=== PATIENT | female | born 2000 | race Caucasian/White ===

== ENCOUNTER 2021-04-13 18:38 | Emergency (ER) | payer OTHER, SELFPAY ==
--- NOTE | ~2021-04-13 | XR_ITS ---
EXAMINATION: XR ABDOMEN KUB CLINICAL INDICATION: Crampy abdominal pain. COMPARISON: None TECHNIQUE: AP views of the abdomen. FINDINGS: Nonobstructive bowel gas pattern. Mild air and stool throughout the bowel. No abnormal soft tissue calcification. No acute osseous abnormality. XR/XR KUB IMPRESSION: Unremarkable examination.
[2021-04-13 19:09] VITALS: BP 116/82; PULSE 80; O2SAT 98
[2021-04-13 19:20] VITALS: BP 113/56; PULSE 96; RESP 20; TEMP 37.1; O2SAT 100; BMI 21.2
[2021-04-13 19:36] LABS: MANUAL DIFF FLAG NO
[2021-04-13 19:38] LABS: Basophils Percent Auto 0.4 % (0-2); Eosinophils Absolute Auto 0.1 X10*3/uL (0.0-0.4); Eosinophils Percent Auto 0.6 % (0-4); Hematocrit 40.7 % (37.0-47.0); Hemoglobin 14.3 g/dl (12.0-16.0); Imm Gran Abs Auto 0.04 X10*3/uL (0.00-0.03); Imm Gran Pct Auto 0.5 % (0.0-0.4); Lymphocytes Absolute Auto 1.8 X10*3/uL (1.2-4.9); Lymphocytes Percent Auto 21.6 % (20-40); Mean Corpuscular HGB Conc 35.1 g/dl (31.0-35.0); Mean Corpuscular Hemoglobin 29.9 pg (27.0-33.0); Mean Corpuscular Volume 85.1 fL (80.0-98.0); Mean Platelet Volume 8.4 fL (9.4-12.3); Monocytes Absolute Auto 0.7 X10*3/uL (0.1-1.2); Neutrophils Absolute Auto 5.5 x10*3/uL (2.0-8.3); Neutrophils Percent Auto 67.9 % (45-73); Platelet Count 345 X10*3/uL (160-400); Red Blood Count 4.78 X10*6/uL (4.20-5.50); Red Cell Distribution Width 11.9 % (11.0-16.0); White Blood Count 8.1 X10*3/uL (4.8-10.8)
[2021-04-13 19:50] LABS: Alanine Aminotransferase 15 U/L (0-31); Albumin Level 4.7 g/dL (3.5-5.0); Alkaline Phosphatase 98 U/L (39-117); Anion Gap 16 (12-20); Aspartate Amino Transferase 19 U/L (5-31); Bilirubin Total 0.6 mg/dL (0.0-1.0); Blood Urea Nitrogen 13 mg/dL (9-16); Calcium 10.1 mg/dL (8.4-10.2); Carbon Dioxide 20 mmol/L (22-29); Chloride 107 mmol/L (96-108); Creatinine Clr Calc Pharmacy 101.2; Estimated Glomerular Filt Rate > 60; Glucose Random 105 mg/dL (60-115); Sodium 139 mmol/L (135-145); Total Protein 7.9 g/dL (6.5-8.0)
[2021-04-13 21:27] LABS: Appearance Urine HAZY; Color Urine YELLOW; Glucose Urine UA NEG (NEG); Leukocyte Esterase Urine NEG (NEG); Nitrite Urine NEG (NEG); Specific Gravity - Urine 1.025 (1.005-1.025); UACC Culture Trigger NO; Urine Blood TRACE (NEG); Urine Ketones 40 MG/DL (NEG); Urine Protein NEG (NEG-TRACE)
[2021-04-13 21:41] LABS: WBC Urine 0-2 /HPF (0-4)
[2021-04-13 21:42] LABS: Amorphous Sediment Urine 1+ /LPF; Bacteria Urine TRACE /LPF; RBC Urine 0-2 /HPF (0); Squamous Epithelial Cell Urine TRACE /LPF
[2021-04-13 22:24] LABS: COVID-19 Test Negative (Negative); IDNOW Serial# 08D9AD1C
[2021-04-13 22:38] LABS: HCG Quantitative < 2 mIU/mL
--- NOTE | 2021-04-13 22:41 | ED_ITS ---
HPI - Abdominal Pain General Chief Complaint: Abdominal Pain Stated Complaint: ABD PAIN,DIARRHEA X'S 2 DAYS,RECENT NEG COVID,+VAC Time Seen by Provider: 04/13/21 21:38 Source: patient Mode of arrival: ambulatory History of Present Illness HPI narrative: 20-year-old female without significant past medical history presents with acute on chronic diarrhea/ constipation syndrome with mild nausea and vomiting but denies urinary pain/ burning / frequency, cough, sore throat and has had her COVID-9 vaccine to include the booster. Patient reports that the past 2 days she has been nauseous, vomiting with up to 8 episodes of diarrhea a day and then today decided to take a laxative as well as additional stool softeners because she still felt like there was something inside . She is now experiencing crampy abdominal pain. Family member who is at bedside states that patient was visiting them approximately 2 weeks ago and was having similar symptoms but that they did not take her to the emergency room at that time. Related Data Previous Rx's Medication Instructions Recorded dicyclomine 10 mg capsule 10 mg PO TID #7 cap 04/13/21 ondansetron HCl 4 mg tablet 4 mg PO Q8H PRN #7 tab 04/13/21 (Zofran) Allergies Allergy/AdvReac Type Severity Reaction Status Date / Time No Known Allergies Allergy Verified 04/13/21 19:20 Review of Systems Review of Systems Pertinent positives and negatives as stated in HPI 10 point review of systems is otherwise negative. Physical Exam Vital Signs: Vital Signs: Last Vital Signs Temp 97.7 F 04/13/21 23:10 Pulse 79 04/13/21 23:10 Resp 20 04/13/21 19:20 BP 120/79 04/13/21 23:10 Pulse Ox 100 04/13/21 23:10 BMI result Body Mass Index 21.2 VITAL SIGNS: Reviewed. GENERAL: Well developed, well nourished, moderate distress. HEAD: Normocephalic/atraumatic EYES: PERRLA, EOMI OROPHARYNX: no oral lesions noted, posterior pharynx clear NECK: Supple, no adenopathy LUNGS: Normal breath sounds. No adventitious sounds or accessory muscle use. SpO2<100> CARDIOVASCULAR: Regular rate and rhythm without noted murmurs ABDOMEN: Soft, diffusely tender without rebound, non-distended with bowel sounds. NEUROLOGIC: Alert and oriented x 4. Course Course Course Narrative: 20-year-old female with history and clinical presentation suggestive of probable IBS as there is no evidence of infection on review investigations, stool studies are pending as well as KUB. Suspect patient's current crampy abdominal discomfort is likely secondary to laxative and stool s oftener use. Review of all investigations negative for acute findings and on re-evaluation after patient received Bentyl she is sitting comfortably on the gurney. She has tolerated oral intake and will be discharged with a script for Bentyl and instructed to follow-up with her primary care provider for further outpatient evaluation and follow-up. In addition, she was instructed to stop taking the medications to address both constipation and diarrhea. MDM - Abdominal Pain Lab Data Result diagrams: 04/13/21 19:29 04/13/21 19:29 Labs: Lab Results 04/13/21 04/13/21 04/13/21 Range/Units 19:29 19:29 21:17 WBC 8.1 (4.8-10.8) X10*3/uL RBC 4.78 (4.20-5.50) X10*6/uL Hgb 14.3 (12.0-16.0) g/dl Hct 40.7 (37.0-47.0) % MCV 85.1 (80.0-98.0) fL MCH 29.9 (27.0-33.0) pg MCHC 35.1 H (31.0-35.0) g/dl RDW 11.9 (11.0-16.0) % Plt Count 345 (160-400) X10*3/uL MPV 8.4 L (9.4-12.3) fL Immature Gran % (Auto) 0.5 H (0.0-0.4) % Neut % (Auto) 67.9 (45-73) % Lymph % (Auto) 21.6 (20-40) % Morton % (Auto) 9.0 (2-11) % Eos % (Auto) 0.6 (0-4) % Baso % (Auto) 0.4 (0-2) % Lymph # (Auto) 1.8 (1.2-4.9) X10*3/uL Morton # (Auto) 0.7 (0.1-1.2) X10*3/uL Eos # (Auto) 0.1 (0.0-0.4) X10*3/uL Baso # (Auto) 0.0 (0.0-0.2) X10*3/uL Abs Immat Gran (auto) 0.04 H (0.00-0.03) X10*3/uL Absolute Neuts (auto) 5.5 (2.0-8.3) x10*3/uL Absolute Nucleated RBC 0.000 (0.0-0.012) X10*3/uL Nucleated RBC % (auto) 0.0 (0.0-0.2) /100WBC Sodium 139 (135-145) mmol/L Potassium 4.0 (3.3-5.1) mmol/L Chloride 107 (96-108) mmol/L Carbon Dioxide 20 L (22-29) mmol/L Anion Gap 16 (12-20) BUN 13 (9-16) mg/dL Creatinine 0.74 (0.5-1.4) mg/dL Estim Creat Clear Calc 101.2 Estimated GFR > 60 Random Glucose 105 (60-115) mg/dL Calcium 10.1 (8.4-10.2) mg/dL Total Bilirubin 0.6 (0.0-1.0) mg/dL AST 19 (5-31) U/L ALT 15 (0-31) U/L Alkaline Phosphatase 98 (39-117) U/L Total Protein 7.9 (6.5-8.0) g/dL Albumin 4.7 (3.5-5.0) g/dL Beta HCG, Quant < 2 mIU/mL Urine Color YELLOW Urine Appearance HAZY Urine pH 6.0 (5.0-8.0) Ur Specific [place] 1.025 (1.005-1.025) Urine Protein NEG (NEG-TRACE) MG/DL Urine Glucose (UA) NEG (NEG) MG/DL Urine Ketones 40 (NEG) MG/DL Urine Blood TRACE (NEG) Urine Nitrite NEG (NEG) Ur Leukocyte Esterase NEG (NEG) Urine RBC 0-2 (0) /HPF Urine WBC 0-2 (0-4) /HPF Ur Squamous Epith Cells TRACE /LPF Amorphous Sediment 1+ /LPF Urine Bacteria TRACE /LPF Stool Leukocytes, Qual (NEGATIVE) COVID-19 (KRISTY) (Negative) COVID-19 Clin Com 04/13/21 04/13/21 Range/Units 21:59 22:43 WBC (4.8-10.8) X10*3/uL RBC (4.20-5.50) X10*6/uL Hgb (12.0-16.0) g/dl Hct (37.0-47.0) % MCV (80.0-98.0) fL MCH (27.0-33.0) pg MCHC (31.0-35.0) g/dl RDW (11.0-16.0) % Plt Count (160-400) X10*3/uL MPV (9.4-12.3) fL Immature Gran % (Auto) (0.0-0.4) % Neut % (Auto) (45-73) % Lymph % (Auto) (20-40) % Morton % (Auto) (2-11) % Eos % (Auto) (0-4) % Baso % (Auto) (0-2) % Lymph # (Auto) (1.2-4.9) X10*3/uL Morton # (Auto) (0.1-1.2) X10*3/uL Eos # (Auto) (0.0-0.4) X10*3/uL Baso # (Auto) (0.0-0.2) X10*3/uL Abs Immat Gran (auto) (0.00-0.03) X10*3/uL Absolute Neuts (auto) (2.0-8.3) x10*3/uL Absolute Nucleated RBC (0.0-0.012) X10*3/uL Nucleated RBC % (auto) (0.0-0.2) /100WBC Sodium (135-145) mmol/L Potassium (3.3-5.1) mmol/L Chloride (96-108) mmol/L Carbon Dioxide (22-29) mmol/L Anion Gap (12-20) BUN (9-16) mg/dL Creatinine (0.5-1.4) mg/dL Estim Creat Clear Calc Estimated GFR Random Glucose (60-115) mg/dL Calcium (8.4-10.2) mg/dL Total Bilirubin (0.0-1.0) mg/dL AST (5-31) U/L ALT (0-31) U/L Alkaline Phosphatase (39-117) U/L Total Protein (6.5-8.0) g/dL Albumin (3.5-5.0) g/dL Beta HCG, Quant mIU/mL Urine Color Urine Appearance Urine pH (5.0-8.0) Ur Specific [place] (1.005-1.025) Urine Protein (NEG-TRACE) MG/DL Urine Glucose (UA) (NEG) MG/DL Urine Ketones (NEG) MG/DL Urine Blood (NEG) Urine Nitrite (NEG) Ur Leukocyte Esterase (NEG) Urine RBC (0) /HPF Urine WBC (0-4) /HPF Ur Squamous Epith Cells /LPF Amorphous Sediment /LPF Urine Bacteria /LPF Stool Leukocytes, Qual NEGATIVE (NEGATIVE) COVID-19 (KRISTY) Negative (Negative) COVID-19 Clin Com See Note Discharge Plan Discharge Clinical Impression: Abdominal discomfort, Alternating constipation and diarrhea Patient Disposition: Home, Self-Care Instructions: Irritable Bowel Syndrome (ED), Constipation (ED), Dehydration (ED), High Fiber Diet (ED), Abdominal Pain (ED) Additional Instructions: continue to drink plenty of fluids, especially water. Stop taking obeq-cec-napaazs medications for constipation and diarrhea. Follow-up with your primary care provider in the next 1-2 days. Return to the ER for worsening symptoms. Prescriptions: New dicyclomine 10 mg capsule 10 mg PO TID Qty: 7 RF: 0 ondansetron HCl [Zofran] 4 mg tablet 4 mg PO Q8H PRN (Reason: nausea and vomiting) Qty: 7 RF: 0 PMFSH Past Medical History Source: nursing notes reviewed Medical History No pertinent past medical history Social History Social History Patient Tobacco Use Status: Never used Tobacco Use of substances other than those prescribed or required for medical reasons: No Advance Directives: No Advance Directives Information Provided: Yes Patient : No
[2021-04-13] MEDS: Dicyclomine HCl 10 MG CAPSULE PO (22:56)
--- NOTE | 2021-04-13 22:58 | PC.NURSE ---
pt reports having nausea and vomiting after she eats. she been taking stool softener. no apparent distress at this time medicated per mar.
--- NOTE | 2021-04-13 23:03 | PC.NURSE ---
stool and urine collected and sent .
[2021-04-13 23:09] LABS: Leukocytes Stool Qualitative NEGATIVE (NEGATIVE)
[2021-04-13 23:10] VITALS: BP 120/79; PULSE 79; TEMP 36.5; O2SAT 100
--- NOTE | 2021-04-13 23:52 | PC.NURSE ---
pt was able to talorate po challenge. reviewed discharge instructions and medications. pt verbalized understanding.
== END 2021-04-13 23:53 | disposition home or self-care (01) ==
PROVIDERS: Emergency Provider Student in an Organized Health Care Education/Training Program
DX: R10.9 Unspecified abdominal pain (principal); Z20.822 Contact with and (suspected) exposure to COVID-19; R19.7 Diarrhea, unspecified; K59.00 Constipation, unspecified
CPT/HCPCS: 36415; 74018; 80053; 81001; 84702; 85025; 87045; 87046; 87635; 89055; 99283; 99284